=== PATIENT | male | born 1975 | race Caucasian/White ===

== ENCOUNTER → 2024-07-19 | Outpatient (CLI) | payer SELFPAY ==
--- NOTE | 2024-07-19 08:14 | RAD_ITS ---
PROCEDURE: Lumbar spine radiographs, five views REASON FOR EXAM: DYSFUNCTION OF LUMBAR REGION TECHNIQUE: Views of the lumbar spine FINDINGS: Five views of the lumbar spine were obtained. The included portions of the pelvis and SI joints are intact. Multiple surgical coils project over the left hemipelvis. No grossly dilated bowel segments. Kiby-[id number]-[id number] stool in the colon. There is slight leftward convex curvature mid lumbar spine on the AP view. No acute fracture of the lumbar spine. Chronic appearing minimal superior endplate compression deformity of L1. Grade 1 retrolisthesis of L3 relative to L4. Mild/moderate multilevel degenerative disc and facet disease in the lumbar spine. RAD/L/S Spine Min 4 Views IMPRESSION: No definite acute bony abnormality of the lumbar spine. Probable chronic minim al superior endplate compression deformity of L1. Mild/moderate multilevel degenerative disc and facet disease in the lumbar spin e. If there is persistent pain or clinical concern, short-term follow-up MRI evaluation may be considered. Reading Location: [facility]
== END | disposition home or self-care (01) ==
LOC: RAD 08:09
PROVIDERS: Referring Provider Chiropractor Orthopedic; Visit Provider Chiropractor Orthopedic
DX: M99.03 Segmental and somatic dysfunction of lumbar region (principal); M99.04 Segmental and somatic dysfunction of sacral region; M54.50 Low back pain, unspecified
CPT/HCPCS: 72110